=== PATIENT | male | born 1955 | race Caucasian/White ===

== ENCOUNTER 2020-08-17 15:06 | Emergency (ER) | payer BC, OTHER | END 2020-08-17 18:12 | disposition home or self-care (01) | LOC: ER1 15:06 | DX: S02.2XXA Fracture of nasal bones, initial encounter for closed fracture (principal); I10 Essential (primary) hypertension; W22.8XXA Striking against or struck by other objects, initial encounter; Z23 Encounter for immunization | CPT/HCPCS: 70450; 70486; 90471; 90715; 99283 ==

== ENCOUNTER → 2020-10-11 | Outpatient (CLI) | payer BC, OTHER | LOC: HEART CORB 08:53 | DX: I10 Essential (primary) hypertension (principal); R42 Dizziness and giddiness | CPT/HCPCS: 93306 ==

== ENCOUNTER → 2021-06-14 | Outpatient (CLI) | payer BC | LOC: SLEEP 13:22 | DX: G47.33 Obstructive sleep apnea (adult) (pediatric) (principal); K21.9 Gastro-esophageal reflux disease without esophagitis | CPT/HCPCS: 95811 ==